=== PATIENT | female | born 1955 | race Caucasian/White ===

== ENCOUNTER 2016-09-16 17:51 | Inpatient (IN) | payer BC ==
--- NOTE | 2016-09-16 18:15 | RAD ---
Indication: Code ponce. RIGHT-sided weakness. Comparison: November 10, [address] Technique: Noncontrast CT vertex of skull through foramen magnum. Report: Hyperdense 2.5 cm AP by 1.8 cm transverse parenchymal hematoma centered at the LEFT cerebral peduncle with ipsilateral extension caudal to the midbrain and cephalad to the thalamus. Mild mass effect on the third ventricle with up to 2 mm rightward midline shift without complete effacement. Negative for effacement of the basal cisterns. Unremarkable cerebral sulci. No additional intra or extra-axial hemorrhage evident. 6 mm chronic lacunar infarct at the RIGHT thalamus. Decreased density in the periventricular and subcortical white matter while non-specific is most likely due to chronic microangiopathy. Atherosclerotic calcification at the intracranial internal carotid arteries. Unremarkable visualized orbital contents. Negative for fracture or focal osseous lesion of the calvarium or skull base. Clear visualized paranasal sinuses and mastoid air spaces. Negative for scalp hematoma. IMPRESSION: Acute intra-axial hematoma centered at the LEFT cerebral peduncle with ipsilateral extension caudal to the midbrain and cephalad to the thalamus with only mild mass effect on the third ventricle without complete effacement. Results discussed with Dr. Griggs 09/16/2016 6:08 PM EDT
[2016-09-16 18:25] LABS: Hematocrit 33 % (35-47); Hemoglobin 10.7 g/dl (12.0-16.0); Mean Corpuscular HGB Conc 33 g/dl (31-36); Mean Corpuscular Hemoglobin 30 pg (27-31); Mean Corpuscular Volume 91 fL (80-97); Mean Platelet Volume 8 um3 (7.4-10.4); Red Blood Count 3.59 10^6/ul (4.0-5.4); Red Cell Distribution Width 16 % (10.5-15); White Blood Count 6.9 10^3/ul (3.5-10.8)
[2016-09-16 18:28] LABS: Albumin 3.4 g/dL (3.2-5.2); BUN/Creatinine Ratio 17.6 (8-20); Calcium 9.5 mg/dL (8.6-10.3); EGFR African American 46.4 (>60); EGFR Non-African American 36.1 (>60); Potassium 3.8 mmol/L (3.5-5.0); Total Bilirubin 0.5 mg/dL (0.2-1.0); Total Protein 7.4 g/dL (6.4-8.9)
[2016-09-16 18:30] LABS: Troponin I 0.01 ng/mL (<0.04)
[2016-09-16] MEDS ORDERED: niCARdipine 0.1MG/ML IVPREMIX* 20 MG/200 ML BAG ONE (18:33)
[2016-09-16 19:13] LABS: Urine Bacteria Absent (Absent); Urine Bilirubin Negative (Negative); Urine Glucose Negative (Negative); Urine Nitrite Negative (Negative)
--- NOTE | 2016-09-16 19:20 | RAD ---
Indication: Intracranial hemorrhage. Unresponsive. Code ponce. Coronary artery disease. Previous myocardial infarction. Comparison: November 11, 2015 Technique: Upright AP 1814 hours Report: Cardiomegaly. Prominent ill-defined central pulmonary vasculature. Negative for peripheral alveolar consolidation. Grossly clear pleural spaces. IMPRESSION: Cardiomegaly and pulmonary vascular congestion.
[2016-09-16] MEDS ORDERED: niCARdipine 0.1MG/ML IVPREMIX* 20 MG/200 ML BAG IV SCH (20:00)
[2016-09-16] MEDS ORDERED: Dextrose 50% Syringe 50 ML* 25 GM/50 ML SYRINGE IV PUSH PRN (20:20)
[2016-09-16] MEDS ORDERED: Labetalol IV* 5 MG/ML 20 ML VIAL IV PUSH PRN (20:21)
[2016-09-16] MEDS ORDERED: Acetaminophen SUPP* 650 MG SUPP PR PRN (20:37)
[2016-09-16] MEDS ORDERED: Morphine INJ* 2 MG/ML 1 ML SYRINGE IV PRN (20:37)
[2016-09-16] MEDS ORDERED: hydrALAZINE IV* 20 MG/ML VIAL IV SLOW PU PRN (20:41)
[2016-09-16] MEDS ORDERED: hydrALAZINE IV* 20 MG/ML VIAL ONE (20:55)
[2016-09-16] MEDS ORDERED: Insulin LISPRO* 1 UNITS UNIT SUBCUT SCH (22:00)
--- NOTE | 2016-09-16 22:28 | ED ---
Juan Jose Bentley Benjamin, scribed for Mason Manning MD on 09/16/16 at 2141 . Altered Mental Status - HPI Summary HPI Summary: 61yo female arrived to ED via EMS as a code ponce. At arrival, pt was non verbal , and presented right sided weakness and right facial droop. Per EMS, pt's sister in law was on phone with the pt approximately around 1650, where pt had slurred speech. Evaluated pt after she returned from CT. Upon CT scan, pt became unresponsive, pupills were dilated 3-4mm, and pt was unresponsive to painful stimuli. GCS of 3. - History Of Current Complaint Chief Complaint: EDAltMentalStatus Stated Complaint: POSS STROKE Hx From Patient Unobtainable Due To: Altered Mental Status - pt became unresponsive, LEVEL 5 CAVEAT - Allergies/Home Medications Allergies/Adverse Reactions: Allergies Allergy/AdvReac Type Severity Reaction Status Date / Time Niacin Allergy Severe A1C Verified 04/30/16 09:50 ELEVATES Amlodipine [From Norvasc] AdvReac Severe Edema Verified 04/30/16 09:50 Ramipril [From Altace] AdvReac Intermediate Coughing Verified 04/30/16 09:50 Home Medications: Home Medications Chlorthalidone 25 mg PO DAILY 09/16/16 [History Confirmed 09/16/16] Cyanocobalamin TAB* [Vitamin B12 TAB*] 1,000 mcg PO DAILY 09/16/16 [History Confirmed 09/16/16] Ferrous Sulfate TAB* 325 mg PO DAILY 09/16/16 [History Confirmed 09/16/16] Gabapentin CAP(*) [Neurontin 100 mg CAP(*)] 100 mg PO .5 TIMES A DAY 09/16/16 [ History Confirmed 09/16/16] PMH/Surg Hx/FS Hx/Imm Hx Endocrine/Hematology History: Reports: Hx Diabetes - TYPE 2, Hx Anemia Denies: Hx Thyroid Disease Cardiovascular History: Reports: Hx Angina, Hx Congestive Heart Failure, Hx Coronary Artery Disease - 2005 AND 2013 CARDIAC STENT X 3, Hx Hypercholesterolemia, Hx Hypertension - CONTROL WITH MEDS, Other Cardiovascular Problems/Disorders - 2005 CARDIAC STENTS Denies: Hx Pacemaker/ICD Respiratory History: Denies: Hx Asthma, Hx Chronic Obstructive Pulmonary Disease (COPD) GI History: Denies: Hx Ulcer History: Reports: Hx Acute Renal Failure, Other Problems/Disorders - CKD 3 Musculoskeletal History: Reports: Hx Arthritis - BILATERAL HANDS Sensory History: Reports: Hx Cataracts - HX OF, Hx Contacts or Glasses - GLASSES , Hx Vision Problem - Diabetic Retinopathy Denies: Hx Hearing Aid Opthamlomology History: Reports: Hx Cataracts - HX OF, Hx Contacts or Glasses - GLASSES, Hx Vision Problem - Diabetic Retinopathy Neurological History: Reports: Hx Nerve Disease - Neuropathy in feet r/t diabetes Psychiatric History: Denies: Hx Panic Disorder - Cancer History Hx Chemotherapy: No Hx Radiation Therapy: No - Surgical History Surgery Procedure, Year, and Place: 1986 D & [place] [facility] [place]. 2005 CARDIAC CATH [facility] [place]. 2005 VISION CARDIAC STENT- OIL DRILLING ENGINEER. 2006 PHAC[place] L EYE [facility] [place]. 2010 VITRECTOMY RT EYE SHE - STABIL EYES CAPSULAR TENSION RING MADE COMPLETELY OF POLY SAFE UP TO 3T. 2013 [place] CARDIAC STENT - [facility], SAFE TO 3T SPACIAL GRADIENT FIELD OF 2500 GAUSS/CM OR LESS. 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 All Other Systems Reviewed And Are Negative: No Physical Exam Triage Information Reviewed: Yes Vital Signs On Initial Exam: Initial Vitals Temp Pulse Resp BP Pulse Ox 97.9 F 67 16 204/78 100 09/16/16 18:00 09/16/16 18:00 09/16/16 18:00 09/16/16 18:00 09/16/16 18:00 Vital Signs Reviewed: Yes Completion Of Physical Exam Limited Due To: Level 5 Eyes: Positive: Other: - pupills dilated 3-4mm Neurological: Positive: Other - unresponsive to painful stimuli - Lila Coma Scale Coma Scale Total: 3 Diagnostics - Vital Signs Vital Signs Temp Pulse Resp BP Pulse Ox 09/16/16 18:48 100 09/16/16 18:00 97.9 F 67 16 204/78 100 - Laboratory Lab Results: Lab Results 09/16/16 09/16/16 09/16/16 Range/Units 18:03 18:03 18:03 WBC 6.9 (3.5-10.8) 10^3/ul RBC 3.59 L (4.0-5.4) 10^6/ul Hgb 10.7 L (12.0-16.0) g/dl Hct 33 L (35-47) % MCV 91 (80-97) fL MCH 30 (27-31) pg MCHC 33 (31-36) g/dl RDW 16 H (10.5-15) % Plt Count 379 (150-450) 10^3/ul MPV 8 (7.4-10.4) um3 Neut % (Auto) 67.8 (38-83) % Lymph % (Auto) 18.8 L (25-47) % [place] % (Auto) 8.2 (1-9) % Eos % (Auto) 3.8 (0-6) % Baso % (Auto) 1.4 (0-2) % Absolute Neuts (auto) 4.7 (1.5-7.7) 10^3/ul Absolute Lymphs (auto) 1.3 (1.0-4.8) 10^3/ul Absolute Monos (auto) 0.6 (0-0.8) 10^3/ul Absolute Eos (auto) 0.3 (0-0.6) 10^3/ul Absolute Basos (auto) 0.1 (0-0.2) 10^3/ul Absolute Nucleated RBC 0 10^3/ul Nucleated RBC % 0.1 INR (Anticoag Therapy) 1.03 (0.89-1.11) APTT 45.3 H (26.0-36.3) seconds Sodium 135 (133-145) mmol/L Potassium 3.8 (3.5-5.0) mmol/L Chloride 102 (101-111) mmol/L Carbon Dioxide 26 (22-32) mmol/L Anion Gap 7 (2-11) mmol/L BUN 26 H (6-24) mg/dL Creatinine 1.48 H (0.51-0.95) mg/dL Est GFR ( Amer) 46.4 (>60) Est GFR (Non-Af Amer) 36.1 (>60) BUN/Creatinine Ratio 17.6 (8-20) Glucose 65 L (70-100) mg/dL POC Glucose (mg/dL) (74-106) mg/dL Lactic Acid (0.5-2.0) mmol/L Calcium 9.5 (8.6-10.3) mg/dL Total Bilirubin 0.50 (0.2-1.0) mg/dL AST 17 (13-39) U/L ALT 8 (7-52) U/L Alkaline Phosphatase 73 (34-104) U/L Troponin I 0.01 (<0.04) ng/mL Total Protein 7.4 (6.4-8.9) g/dL Albumin 3.4 (3.2-5.2) g/dL Globulin 4.0 (2-4) g/dL Albumin/Globulin Ratio 0.9 L (1-3) Triglycerides 134 mg/dL Cholesterol 130 mg/dL LDL Cholesterol 78 mg/dL HDL Cholesterol 25.0 mg/dL Blood Type Antibody Screen 09/16/16 09/16/16 09/16/16 Range/Units 18:03 18:03 18:11 WBC (3.5-10.8) 10^3/ul RBC (4.0-5.4) 10^6/ul Hgb (12.0-16.0) g/dl Hct (35-47) % MCV (80-97) fL MCH (27-31) pg MCHC (31-36) g/dl RDW (10.5-15) % Plt Count (150-450) 10^3/ul MPV (7.4-10.4) um3 Neut % (Auto) (38-83) % Lymph % (Auto) (25-47) % [place] % (Auto) (1-9) % Eos % (Auto) (0-6) % Baso % (Auto) (0-2) % Absolute Neuts (auto) (1.5-7.7) 10^3/ul Absolute Lymphs (auto) (1.0-4.8) 10^3/ul Absolute Monos (auto) (0-0.8) 10^3/ul Absolute Eos (auto) (0-0.6) 10^3/ul Absolute Basos (auto) (0-0.2) 10^3/ul Absolute Nucleated RBC 10^3/ul Nucleated RBC % INR (Anticoag Therapy) (0.89-1.11) APTT (26.0-36.3) seconds Sodium (133-145) mmol/L Potassium (3.5-5.0) mmol/L Chloride (101-111) mmol/L Carbon Dioxide (22-32) mmol/L Anion Gap (2-11) mmol/L BUN (6-24) mg/dL Creatinine (0.51-0.95) mg/dL Est GFR ( Amer) (>60) Est GFR (Non-Af Amer) (>60) BUN/Creatinine Ratio (8-20) Glucose (70-100) mg/dL POC Glucose (mg/dL) 69 L (74-106) mg/dL Lactic Acid 0.5 (0.5-2.0) mmol/L Calcium (8.6-10.3) mg/dL Total Bilirubin (0.2-1.0) mg/dL AST (13-39) U/L ALT (7-52) U/L Alkaline Phosphatase (34-104) U/L Troponin I (<0.04) ng/mL Total Protein (6.4-8.9) g/dL Albumin (3.2-5.2) g/dL Globulin (2-4) g/dL Albumin/Globulin Ratio (1-3) Triglycerides mg/dL Cholesterol mg/dL LDL Cholesterol mg/dL HDL Cholesterol mg/dL Blood Type O Positive Antibody Screen Negative Result Diagrams: 09/16/16 18:03 09/16/16 18:03 Lab Statement: Any lab studies that have been ordered have been reviewed, and results considered in the medical decision making process. - Radiology CXR Xray Interpretation: Positive (See Comments) Radiology Interpretation Completed By: Radiologist - CT CT Brain CT Interpretation: Positive (See Comments) - IMPRESSION: Acute intra-axial hematoma centered at the LEFT cerebral peduncle with ipsilateral extension caudal to the midbrain and cephalad to the thalamus with only mild mass effect on the third ventricle without complete effacement. CT Interpretation Completed By: Radiologist - EKG 1809. Cardiac Rate: NL - 64bpm EKG Rhythm: Sinus Rhythm EKG Interpretation: RBBB EKG Comparison: No Significant Change - compared to 11/10/15. Altered Mental Statu Course/Dx - Course Course Of Treatment: I initially encountered the patient after she returned from CT. Dr. Orellana had seen her and the CT result returned with a significant bleed. She was in a coma with a GCS of 3 but maintaining her airway well. Her blood pressure was elevated and cardene was used to bring it under control. She was admitted to the ICU. - Diagnoses Discharge Diagnoses: Intracerebral hemorrhage - Critical Care Time Critical Care Time: 30-74 min Discharge - Discharge Plan Condition: Critical Disposition: ADMITTED TO [facility] The documentation as recorded by the Juan Jose nicholson Benjamin accurately reflects the service I personally performed and the decisions made by me, Mason Manning MD.
--- NOTE | 2016-09-16 23:35 | CONS ---
NEUROLOGY CONSULTATION: DATE OF CONSULTATION: 09/16/16 REFERRING PROVIDER: Landon Griggs DO PRIMARY CARE PROVIDER: Napoleon Pineda MD LOCATION: She is in the emergency room to be admitted. CHIEF COMPLAINT: Unresponsiveness. HISTORY OF PRESENT ILLNESS: Alexia Rhoades is a 61-year-old right-handed woman who was in her usual state of health until about 4 to 4:30 today. She was talking to her sister on the phone and her speech started to become garbled. She lives with her father and when he saw her shortly thereafter, she was not making any sense. Her level of responsiveness rapidly declined and she was brought into the emergency room by ambulance. In the emergency room, a code kelly was called. She was unresponsive at presentation. Her CT of the brain reveals a large left thalamic hemorrhage with some mild degree of [id number] shift. 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 She has left- sided sensory deficit and some mild weakness. Her family said she made a good recovery from that. She has been on Plavix chronically as well as rosuvastatin. PAST MEDICAL HISTORY: Notable for diabetes for many years complicated by diabetic neuropathy and retinopathy. She has coronary artery disease, catheterization in 2005, stenting in 2013 a second time. She had carotid atherosclerotic disease, which was less than 70%, but I believe she might have underwent an endarterectomy after her thalamic stroke in 2016. She has chronic renal insufficiency. MEDICATIONS: At home consist of: 1. Plavix 75 mg p.o. daily. 2. Rosuvastatin 10 mg p.o. daily. 3. Hydralazine 50 mg p.o. q.i.d. 4. Insulin sliding scale. 5. Possibly aspirin 81 mg at bedtime, although the medication bag brought in by her family does not have aspirin in it. 6. Chlorthalidone 25 mg p.o. every day. ALLERGIES: She is allergic to RAMIPRIL, AMLODIPINE, and NIACIN. PHYSICAL EXAMINATION: She is an obese. Blood pressure is running around 210/90 , heart rate 70 and seems regular, and respiratory rate is irregular at about 12. Heart tones are very distant and I do not hear murmurs. Neck is supple. Lungs are clear anterolaterally. I cannot feel carotid pulses and I cannot hear any bruits either. Neurologically, the left pupil is considerably bigger than the right by about 3 mm, but she has retinal scars and poor reaction to light bilaterally. Eye movements are slightly divergent and fixed. There is no facial movement. There is mild facial grimacing to nail bed pressure. There is an extensive posturing on the right to deep nail bed pressure in the foot and hand. There was mild flexion withdrawal or posturing on the left. She has bilateral Babinski signs. She is nonresponsive to voice or pain, otherwise. LABORATORY DATA: Additional laboratory data includes a CBC notable for hemoglobin 10.7 and platelet count 379,000. Coags are notable for an INR of 1.03 and an elevated PTT of 45.3. Chemistries are notable for creatinine of 1.5 , BUN 26, and glucose of just 65. Last cholesterol this admission notable for 130 and LDL 78. IMPRESSION AND RECOMMENDATIONS: A large left thalamic hemorrhage. The volume looks to be greater than 40 cubic millimeters. Prognosis is poor. She will likely need airway protection unless the family decides not to be aggressive in her care. That is currently being decided. I would recommend gentle blood pressure lowering with a target systolic between 160 to 180. Plavix should be held and so should her statin. I would not recommend DVT prophylaxis and heparinoids, but rather compression stockings. A platelet transfusion can be considered, but I am not sure if there is any clear benefit in this setting. Neurosurgery is going to be consulted, but it is unlikely a surgical procedure would be a benefit given the deep nature of this lesion and the size of it. I have discussed my preliminary impression with the patient's sister and father and also with Dr. Griggs. [id number]/[facility] #: [id number] PABLO
[2016-09-17] MEDS ORDERED: Insulin LISPRO* 1 UNITS UNIT SUBCUT SCH
--- NOTE | 2016-09-17 00:34 | HP ---
ADDENDUM NOW INCLUDED ON THIS REPORT HISTORY AND PHYSICAL: DATE OF ADMISSION: 09/16/16 PRIMARY CARE PHYSICIAN: Dr. Napoleon Pineda. PROVIDER: Tian Steinberg NP ATTENDING PHYSICIAN: Dr. Hudson Benson* (dictated by Tian Steinberg NP) CONSULTING PHYSICIAN: Dr. Victor M Orellana, Neurology. CHIEF COMPLAINT: Altered mental status. HISTORY OF PRESENT ILLNESS: Ms. Rhoades is a 61-year-old female who presented to the ED today with concern for code ponce. The patient was last noted to be at her baseline state around 1650 this afternoon. The patient is unresponsive and is unable to provide history. History is provided by the patient's sister and father. Per the patient's sister, Amaris, she was talking on the phone with Ms. Alexia Rhoades around 1645 to 1650 and during the conversation, Amaris noticed that her words were starting to slow together and that she sounded as if she were groggy. Amaris then called her father, who lives with her sister and he went to check on her. He states that he noticed that her reaching and hand movements were off and that she was not able to use her right arm. They then called EMS to bring her in for further evaluation. Here in the ER, the patient was a code ponce and was noted to have rapidly deteriorating neurological state. She is now unresponsive and not responding to any commands, verbal or tactile stimuli. Henniker Coma Scale in the ER was noted to be 3. CT brain done in the ER showed concern for an acute intraaxial hematoma centered at the left cerebral peduncle with ipsilateral extension caudal to the mid brain and cephalad to the thalamus with only mild mass effect on the periventricle without complete effacement. Per report, the ER physician did discuss this case with Dr. Waller of Neurosurgery, who said that there is no surgical management that can offered to this patient. Neurology also saw the patient in the ER. PAST MEDICAL HISTORY: Obtained from the medical records and the patient's family includes: 1. Type 2 diabetes, insulin-dependent. 2. History of TIA. 3. Chronic anemia. 4. Hypertension. 5. Dyslipidemia. 6. History of right ICA stenosis of 60% to 70%. 7. History of chronic renal insufficiency with chronic kidney disease stage 3. 8. History of cardiac catheterization in 2005 with 2 stents at that time and repeat cardiac catheterization in 2013 with one stent. HOME MEDICATIONS: 1. Aspirin 81 mg daily. 2. Ferrous sulfate 325 mg daily. 3. Vitamin B12 1000 mcg daily. 4. Metoprolol tartrate 100 mg b.i.d. 5. Cholecalciferol 1000 units q.a.m. 6. Gabapentin 100 mg 5 times a day. 7. Rosuvastatin 10 mg daily. 8. Chlorthalidone 25 mg daily. 9. Clopidogrel 75 mg daily. 10. Hydralazine 50 mg 4 times a day. 11. Insulin regular per sliding scale not to exceed 50 units per day. 12. Insulin glargine 20 units b.i.d. ALLERGIES: Include NIACIN, AMLODIPINE, and RAMIPRIL. FAMILY HISTORY: Includes her father who has a history of coronary artery bypass grafting and her mother who secondary to colon cancer at age 67. SOCIAL HISTORY: Family denies the patient has any history of tobacco, alcohol, or illicit drug use. She is disabled and currently living at home with her father and her brother. The patient's healthcare proxy and surrogate decision maker is her lgtltm-sh-era, Amaris Rhoades, who can be reached at [phone]. Secondary healthcare proxy is her father, Krystian Rhoades, who can be reached at [phone]. REVIEW OF SYSTEMS: By report from family, but mostly unobtainable due the patient's neurological status. PHYSICAL EXAMINATION GENERAL: Ms. Rhoades is a 61-year-old female, who is lying unresponsive, in the ED stretcher. VITAL SIGNS: Temperature 97.9, heart rate 68, respiratory rate 14, blood pressure 182/82, and O2 saturation is 99% on 10 L. HEENT: Head is atraumatic, normocephalic. Pupils are nonreactive with the left pupil approximately 4 to 5 mm and the right pupil approximately 2 to 3 mm. NECK: Supple. No lymphadenopathy appreciated. RESPIRATORY: Lung sounds are diminished. Chest expansion is symmetrical. There is no accessory muscle use. CARDIAC: S1 and S2 heart sounds. Regular rate and rhythm. No murmurs, rubs, or gallops. ABDOMEN: Soft, nondistended. Bowel sounds hypoactive. EXTREMITIES: No clubbing or cyanosis noted. There is no resistance against gravity. Distal pulses are 1+ bilaterally. NEUROLOGIC: The patient is unresponsive. There is no eye opening, verbal response, or motor response. Pupils are nonreactive. She has a Lila Coma Scale of 3. She is not following commands. She is not tracking movements. LABORATORY DATA AND DIAGNOSTIC STUDIES: CT scan as previously stated. CBC - WBC 6.9, hemoglobin 10.7, hematocrit 33, platelet count 379, INR 1.03, PTT 45.3. CMP: Sodium 135, potassium 3.8, chloride 102, carbon dioxide 26, BUN 26, creatinine 1.48, glucose 65, lactic acid 0.5, calcium 9.5. Total bilirubin 0.5 , AST 17, ALT 8, alk phos 73, troponin 0.01, albumin 3.4. Triglycerides 134, cholesterol 130, LDL 78, HDL 25.0. UA significant for 1+ blood, 2+ protein. EKG shows sinus rhythm with right bundle branch block. Chest x-ray significant for cardiomegaly and pulmonary vascular congestion. Old medical records were reviewed. ASSESSMENT AND PLAN: Ms. Rhoades is a 61-year-old female with a past medical history as previously stated who presents today with concern for acute thalamic intracranial hemorrhage. Her prognosis is poor. We will admit her to the ICU for close observation. Plan is as follows: 1. Large thalamic intracranial hemorrhage. Again, the prognosis is poor. Per the family, who will be arriving shortly, they do not wish for her to be intubated. I did discuss with them that her condition would likely quickly deteriorate and she would require airway intervention and would most likely need intubation. Per discussion with her sister, Amaris, who is her healthcare proxy, they do not wish for her to be intubated. They will be coming to fill out a MOLST form, which we will put on the chart. We will have the patient closely monitored in the ICU and a palliative care consult will be placed as her prognosis is poor and I suspect that the family will not want her to be a full code. We will continue to monitor the patient on q.2 neuro checks. The patient will be on q.4 glucose checks with hyperglycemic control. Dr. Orellana has evaluated this patient and recommends a goal blood pressure of systolic between 160 to 180. I will order p.r.n. labetalol and hydralazine to help maintain this goal. Per Dr. Orellana, statins, antiplatelets, or platelet transfusion are all not recommended at this time. 2. History of type 2 diabetes, insulin dependent. Continue q.4 glucose checks with insulin sliding scale coverage. We can add Lantus on as needed for better glucose control, but currently I am maintaining the patient on sliding scale coverage only. 3. Chronic kidney disease. The patient's creatinine appears to be within baseline at this time. 4. Anemia. The patient's H and H appears to be within baseline. We will recheck her CBC tomorrow. 5. DVT prophylaxis. Anticoagulation is contraindicated in acute intracranial bleed. Continue the patient on compression therapy with SCDs. 6. Code status. The patient is currently listed as a full code with followup. I anticipate that she will most likely be a DNR/DNI pending conversation with her sister, who is on the way here to discuss the MOLST form. TIME SPENT: Time spent on this admission was approximately 70 minutes, more than half that time was spent [id number] with the patient and in conversation with her family obtaining history and physical, performing physical examination , and reviewing the plan of care. Plan of care was also reviewed with my attending, Dr. Benson, who is in agreement. TIAN STEINBERG NP MEDICINE HISTORY AND PHYSICAL: ADDENDUM: While the patient was in the ED, after her family had left, she was noted to have a change in respiratory status. I did notify the family via phone; I spoke with her [id number] and healthcare proxy, Ms. Amaris Rhoades. She indicated that by the patient's previously expressed wishes and her family's wishes that they do not wish to pursue mechanical intubation or ventilation for Ms. Rhoades. She was able to verbalize understanding that due to the nature of the patient's intracerebral hemorrhage that respiratory status will likely be declining quickly and without intubation that the patient's prognosis would be poor and would most likely be imminent. She verbalized understanding of that. Ms. Amaris Rhoades did come back around 9 o'clock in the evening and we did review the MOLST form. We agreed that the patient would be a DNR/DNI and indicated this per the MOLST. Family also requested comfort care measures and palliative treatment was . This is reflected on the MOLST, which is signed and in the chart. TIAN STEINBERG NP CC: Dr. Pineda; Dr. Franks; Greyson Harris * [id number]/[facility] #: [id number] #: [id number] [facility]
[2016-09-17 02:55] VITALS: BP 166/49
--- NOTE | 2016-09-17 19:02 | HP ---
MEDICINE HISTORY AND PHYSICAL:* ADDENDUM: While the patient was in the ED, after her family had left, she was noted to have a change in respiratory status. I did notify the family via phone ; I spoke with her [id number] and healthcare proxy, Ms. Amaris Rhoades. She indicated that by the patient's previously expressed wishes and her family's wishes that they do not wish to pursue mechanical intubation or ventilation for Ms. Rhoades. She was able to verbalize understanding that due to the nature of the patient's intracerebral hemorrhage that respiratory status will likely be declining quickly and without intubation that the patient's prognosis would be poor and would most likely be imminent. She verbalized understanding of that. Ms. Amaris Rhoades did come back around 9 o'clock in the evening and we did review the MOLST form. We agreed that the patient would be a DNR/DNI and indicated this per the MOLST. Family also requested comfort care measures and palliative treatment was . This is reflected on the MOLST, which is signed and in the chart[place] [id number]/[facility] #: [id number] PABLO
== END 2016-09-17 01:30 | disposition expired | DRG 44 ==
LOC: ED 17:51 → ICU 20:14
PROVIDERS: ADMIT Internal Medicine; ATTEND Internal Medicine
DX: I61.6 Nontraumatic intracerebral hemorrhage, multiple localized (principal); I69.351 Hemiplegia and hemiparesis following cerebral infarction affecting right dominant side; E11.22 Type 2 diabetes mellitus with diabetic chronic kidney disease; I13.10 Hypertensive heart and chronic kidney disease without heart failure, with stage 1 through stage 4 chronic kidney disease, or unspecified chronic kidney disease; N18.3 Chronic kidney disease, stage 3 (moderate); R40.2432 Glasgow coma scale score 3-8, at arrival to emergency department; E11.42 Type 2 diabetes mellitus with diabetic polyneuropathy; E11.319 Type 2 diabetes mellitus with unspecified diabetic retinopathy without macular edema; I25.10 Atherosclerotic heart disease of native coronary artery without angina pectoris; D64.9 Anemia, unspecified; E78.5 Hyperlipidemia, unspecified; Z66 Do not resuscitate; Z79.82 Long term (current) use of aspirin; Z79.899 Other long term (current) drug therapy; Z95.5 Presence of coronary angioplasty implant and graft; Z79.4 Long term (current) use of insulin; Z88.8 Allergy status to other drugs, medicaments and biological substances; Z82.49 Family history of ischemic heart disease and other diseases of the circulatory system; Z80.0 Family history of malignant neoplasm of digestive organs
CPT/HCPCS: 36415; 70450; 71010; 80053; 80061; 81003; 81015; 83605; 84484; 85025; 85610; 85730; 86850; 86900; 86901; 93005; J0360